=== PATIENT | female | born 1970 | race Caucasian/White ===

== ENCOUNTER 2016-12-05 16:49 | Emergency (ER) | payer OTHER ==
[2016-12-05] MEDS ORDERED: 0.9 % SODIUM CHLORIDE 1,000 ML IV ONE ×2 (16:59→17:00)
[2016-12-05] MEDS ORDERED: ONDANSETRON HCL/PF 4 MG/ 2ML VIAL IVP ONE ×2 (16:59→18:05)
[2016-12-05] MEDS ORDERED: ONDANSETRON HCL/PF 4 MG/ 2ML VIAL ONE (17:00)
[2016-12-05] MEDS ORDERED: HYDROmorphone HCL/PF 1 MG/ML DISP.SYRIN ONE (17:03)
[2016-12-05] MEDS ORDERED: HYDROmorphone HCL/PF 1 MG/ML DISP.SYRIN IVP ONE ×2 (17:04→19:09)
[2016-12-05 17:10] LABS: BASOPHILS % 0.8 (0.0-1.5); EOSINOPHILS % 2.8 % (0.0-6.8); MEAN CORPUSCULAR HEMOGLOBIN 28.1 pg (28.0-34.0); MEAN CORPUSCULAR VOLUME 90.5 fl (80.0-100.0); MONOCYTES % 4.7 % (0.0-11.0); NEUTROPHILS # 3.2 # k/uL (1.4-7.7)
[2016-12-05 17:26] LABS: eGFR (African) > 60; eGFR (Non-African) > 60
[2016-12-05] MEDS ORDERED: PANTOPRAZOLE SODIUM INJ. 40 MG VIAL ONE (17:26)
[2016-12-05] MEDS ORDERED: 0.9 % SODIUM CHLORIDE 100 ML IV ONE (17:26)
[2016-12-05] MEDS ORDERED: PANTOPRAZOLE SODIUM 40 MG in 0.9 % SODIUM CHLORIDE 50 ML IV SCH (18:00)
--- NOTE | 2016-12-05 18:00 | ED Physician Documentation ---
GI Bleed - HISTORIAN Historian: patient - HPI Stated Complaint: Nausea and Vomiting Chief Complaint: GI Bleed Additional Information: nausea hematemesis abd pain hx GIETLEMANS SYNDROME wears port. pt also has tachycardia and dyspnea Onset: days ago (1-2) Timing: gradual onset. denies: resolved on arrival to ED Severity: moderate Further Comments: yes (had episode last fall had tear in esophagus required surgery-also had 2 units blood) - Associated Symptoms Abdominal Pain: cramping, burning, moderate, epigastric Emesis Description: other (bright red blood) Description of Rectal Bleed: denies: bleeding w/o stools (normal brown bm this am) Other Related Symptoms: nausea, vomiting, other (sig abd pain) - ROS CONST: no problems. denies: recent illness, fever SKIN/LYMPH: denies: leg swelling, swollen glands CVS/RESP: none. denies: chest pain, shortness of breath GI/: denies: problems urinating MS: swollen glands NEURO/PSYCH: anxiety. 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) Surgeries/Procedures: cholecystectomy, , BLT, other (repair esophageal tear ivc filter pick line ) Allergies/Adverse Reactions: Allergies Allergy/AdvReac Type Severity Reaction Status Date / Time ketorolac tromethamine Allergy Verified 12/05/16 17:24 [From Toradol] NSAIDS (Non-Steroidal Allergy Verified 12/05/16 17:24 Anti-Inflamma Sulfa (Sulfonamide Allergy Verified 12/05/16 17:24 Antibiotics) morphine AdvReac Vomiting Verified 12/05/16 17:24 IV Dye Allergy Uncoded 12/05/16 17:24 Home Medications: Ambulatory Orders Medication Instructions Recorded Calcium Carb 500Mg [Tums] 500 mg PO BID 12/05/16 Ciprofloxacin HCl [Cipro] 500 mg PO BID 12/05/16 Cyanocobalamin [Vitamin B-12] 1,000 mcg PO DAILY 12/05/16 Fludrocortisone Acetate [Florinef] 0.1 mg PO QD 12/05/16 Folic Acid 1 mg PO BID 12/05/16 HYDROmorphone HCL [Dilaudid] 2 mg PO 12/05/16 Magnesium Oxide [Magnesium] 750 mg PO TID 12/05/16 Mesalamine [Mesalamine] 12/05/16 Pantoprazole Sodium [Protonix] 40 mg PO 717 12/05/16 Potassium Chloride [Klor-Con M20] 40 - 60 meq PO BID 12/05/16 Sertraline HCl [Zoloft] 100 mg PO DAILY 12/05/16 Spironolactone [Aldactone] 10 mg PO BID 12/05/16 - SOCIAL HX Smoking History: non-smoker Alcohol Use: none Drug Use: none - FAMILY HX Family History: none (NO OTHER gitemans syndrome in family) - VITAL SIGNS Vital Signs: Vital Signs Temp Pulse Resp BP Pulse Ox 130 H 20 104/61 98 12/05/16 16:50 12/05/16 16:50 12/05/16 16:50 12/05/16 16:50 - REVIEWED ASSESSMENTS Vitals Reviewed: Yes ED Results Lab/Radiology - Lab Results Lab Results: Lab Results 12/05/16 12/05/16 12/05/16 17:03 17:03 17:03 WBC 5.10 K/ul K/ul (4.00-12.00) RBC 3.42 M/ul L M/ul (3.90-5.20) Hgb 9.6 g/dL L g/dL (12.0-16.0) Hct 30.9 % L % (34.5-46.5) MCV 90.5 fl fl (80.0-100.0) MCH 28.1 pg pg (28.0-34.0) MCHC 31.1 g/dL g/dL (30.0-36.0) RDW 14.9 % H % (11.3-14.3) Plt Count 407 K/mm3 H K/mm3 (130-400) Neut % (Auto) 63.2 % % (39.0-79.0) Lymph % (Auto) 26.8 % % (16.0-50.0) Hernando % (Auto) 4.7 % % (0.0-11.0) Eos % (Auto) 2.8 % % (0.0-6.8) Baso % (Auto) 0.8 (0.0-1.5) Neut # (Auto) 3.2 # k/uL # k/uL (1.4-7.7) Lymph # (Auto) 1.4 # k/uL # k/uL (0.6-4.0) Hernando # (Auto) 0.2 # k/uL # k/uL (0.0-0.9) Eos # (Auto) 0.1 # k/uL # k/uL (0.0-0.6) Baso # (Auto) 0.0 # k/uL # k/uL (0.0-0.5) Reactive Lymphs % 1.7 % % (0.0-5.0) Reactive Lymphs # 0.1 # k/uL # k/uL (0.0-0.8) Sodium 142 mmol/L mmol/L (136-145) Potassium 3.1 mmol/L L mmol/L (3.5-5.0) Chloride 102 mmol/L mmol/L (98-110) Carbon Dioxide 33 mmol/L H mmol/L (20-32) BUN 10 mg/dL mg/dL (10-26) Creatinine 0.8 mg/dL mg/dL (0.4-1.5) Est GFR ( Amer) > 60 (60 - ) Est GFR (Non-Af Amer) > 60 (60 - ) Glucose 143 mg/dL H mg/dL (70-99) Calcium 10.1 mg/dL mg/dL (8.5-10.5) Total Bilirubin 0.3 mg/dL mg/dL (0.2-1.2) AST 21 U/L U/L (0-41) ALT 11 U/L U/L (0-45) Alkaline Phosphatase 76 U/L U/L (46-116) Total Protein 7.4 g/dL g/dL (6.0-8.5) Albumin 4.8 g/dL g/dL (3.0-5.5) Amylase 81 U/L U/L (20-104) - Orders Orders: ED Orders Category Date Time Status Place IV Lock 1T Care 12/05/16 16:59 Completed ABD SERIES PA CHEST [RAD] Stat Exams 12/05/16 Taken CBC/PLATELET/DIFF Routine Lab 12/05/16 17:03 Completed CMP Routine Lab 12/05/16 17:03 Completed URINALYSIS Routine Lab 12/05/16 Ordered mare [AMYLASE] Routine Lab 12/05/16 17:03 Completed 0.9 % Sodium Chloride [Normal Saline] 1,000 ml Med 12/05/16 17:00 Discontinued IV .STK-MED 0.9 % Sodium Chloride [Normal Saline] 1,000 ml Med 12/05/16 16:59 Discontinued IV Q1H 0.9 % Sodium Chloride [Sodium Chloride] 100 ml Med 12/05/16 17:26 Discontinued IV .STK-MED HYDROmorphone HCL/PF [Dilaudid] Med 12/05/16 17:03 Discontinued 1 mg .ROUTE .STK-MED ONE HYDROmorphone HCL/PF [Dilaudid] Med 12/05/16 17:04 Discontinued 1 mg IVP NOW ONE Ondansetron HCl/Pf [Zofran 4 mg/2 ml] Med 12/05/16 17:00 Discontinued 4 mg .ROUTE .STK-MED ONE Ondansetron HCl/Pf [Zofran 4 mg/2 ml] Med 12/05/16 16:59 Discontinued 4 mg IVP NOW ONE Pantoprazole Sodium [Protonix] Med 12/05/16 17:26 Discontinued 40 mg .ROUTE .STK-MED ONE Pantoprazole Sodium [Protonix] 40 mg Med 12/05/16 18:00 Ordered 0.9 % Sodium Chloride [Sodium Chloride] 50 ml IV DAILY EKG WITH COMPARISON Stat Ther 12/05/16 Ordered Abdominal Pain Physical Exam - Physical Exam General Appearance: moderate distress, anxious EENT: eye inspection normal NECK: normal inspection, thyroid normal, supple RESPIRATORY: no resp distress, breath sounds normal CVS: heart sounds normal, tachycardia ABDOMEN: tenderness, guarding (maggie epigastric area) BACK: normal inspection, no CVA tenderness SKIN: warm/dry, normal color, pallor. No: cyanosis, diaphoresis EXTREMITIES: non-tender, normal range of motion, no evidence of injury NEURO: oriented X3, motor nml, sensation nml Vital Signs: Vital Signs Temp Pulse Resp BP Pulse Ox 130 H 20 104/61 98 12/05/16 16:50 12/05/16 16:50 12/05/16 16:50 12/05/16 16:50 Discharge Clincal Impression: hematemesis, gitemans syndrome w/lo k, prev cva and PE Referrals: Primary Doctor,No [Primary Care Provider] - 2 Days Home Medications: Ambulatory Orders Calcium Carb 500Mg [Tums] 500 mg PO BID 12/05/16 Ciprofloxacin HCl [Cipro] 500 mg PO BID 12/05/16 Cyanocobalamin [Vitamin B-12] 1,000 mcg PO DAILY 12/05/16 Fludrocortisone Acetate [Florinef] 0.1 mg PO QD 12/05/16 Folic Acid 1 mg PO BID 12/05/16 HYDROmorphone HCL [Dilaudid] 2 mg PO 12/05/16 Magnesium Oxide [Magnesium] 750 mg PO TID 12/05/16 Mesalamine [Mesalamine] 12/05/16 Pantoprazole Sodium [Protonix] 40 mg PO 717 12/05/16 Potassium Chloride [Klor-Con M20] 40 - 60 meq PO BID 12/05/16 Sertraline HCl [Zoloft] 100 mg PO DAILY 12/05/16 Spironolactone [Aldactone] 10 mg PO BID 12/05/16 Comments: [facility] PT REQUEST DR CHISHOLM Condition: Fair Disposition: 02 XFER SHT-TRM HOSP Decision to Admit: [id number] Decision Time: 19:41
--- NOTE | 2016-12-05 18:01 | Diagnostic Imaging Report ---
[facility] [address] [facility].[address] [address] Report Submission Date: Dec 05, 2016 5:58:20 PM CDT Patient Study Name: SANDRA KABA Date: Dec 05, 2016 5:27:20 PM CDT Modality Type: CR Gender: F Description: CHEST,ABDOMEN : 74 Institution: [facility] Physician: FERNANDO MORA - ER Examination: Chest/Abdomen History: Abdominal discomfort Findings: 4 views obtained of the chest and abdomen. Single view of the chest demonstrates a normal cardiac silhouette. No focal infiltrate or effusion. Parenchymal scarring right upper lung. Thoracic curvature to the left. Right- sided chandrakant cath. No abnormal dilation of the large or small bowel. Air and stool throughout the large bowel. No suspicious calcification projecting over the renal fossa or the lower pelvic region. surgical clips right upper quadrant. Inferior vena cava filter. Pelvic phleboliths. Osseous structures are appropriate for age. Impression: No acute pulmonary process. Parenchymal scarring right upper lung. Correlate with older studies. No ileus or obstruction. No suspicious calcifications by plain film sensitivity. Electronically signed on Dec 05, 2016 5:58:20 PM CDT by: Jaime FORTUNE
[2016-12-05] MEDS ORDERED: PROMETHAZINE HCL 12.5 MG in 0.9 % SODIUM CHLORIDE 50 ML IV ONE (19:10)
[2016-12-05] MEDS ORDERED: HEPARIN SODIUM 500 UNIT/5 ML DISP.SYRIN IV ONE (20:09)
[2016-12-05] MEDS ORDERED: HEPARIN SODIUM,PORCINE 30 UNITS INJ IV ONE (20:10)
[2016-12-05 22:30] VITALS: BP 126/70
[2016-12-06 05:29] LABS: APPEARANCE,URINE CLEAR (CLEAR); COLOR,URINE YELLOW (YELLOW); OCCULT BLOOD,URINE NEGATIVE (NEGATIVE); PH URINE 5.5 (5.0 - 8.0); UROBILINOGEN URINE 0.2 Eu (0.2-1.0)
[2016-12-08 05:17] LABS: AMPHETAMINE NEGATIVE ng/mL (<1000); BARBITURATES NEGATIVE ng/mL (<300); CANNABINOIDS NEGATIVE ng/mL (< 50); COCAINE NEGATIVE ng/mL (<150); METHAMPHETAMINE NEGATIVE ng/mL (<1000); METHYLENEDIOXYMETHAMPHETAMINE NEGATIVE ng/mL (<500); OPIATES NON NEGATIVE ng/mL (<300)
== END 2016-12-05 20:30 | disposition short-term general hospital (02) ==
LOC: ED 16:49
DX: K92.0 Hematemesis (principal); E26.81 Bartter's syndrome; Z53.21 Procedure and treatment not carried out due to patient leaving prior to being seen by health care provider
CPT/HCPCS: 74022; 80053; 80377; 81002; 82150; 85025; 93005; J1170; J1642; J2405; J2550; J7030; 96361; 96365; 96375; 99284; G0481

== ENCOUNTER 2019-01-15 14:58 | Emergency (ER) | payer OTHER ==
--- NOTE | 2019-01-15 15:14 | ED Physician Documentation ---
General Adult - HISTORIAN Historian: patient - HPI Stated Complaint: vomiting blood Chief Complaint: General Adult Additional Information: Patient presents to ED with a 2 hour history of vomiting blood. Patient has a history of peptic ulcers and is currently on carafate and pepcid. She reports surgical intervention for her peptic ulcer. Last night she began to have epigastric pain and then this afternoon began to vomit bright red blood. She reports throwing up about 2 cups of blood prior to arrival to ED. After arrival to ED patient has vomited another cup of bright red blood. Patient also reports twisting her left ankle this morning. Onset: hours (2) Timing: still present Severity: severe - ROS CONST: denies: fever EYES/ENT: denies: problems with vision CVS/RESP: denies: chest pain, shortness of breath GI/: abdominal pain, vomiting, nausea MS/SKIN/LYMPH: none NEURO/PSYCH: denies: headache - PAST HX Past History: none Other History: peptic ulcer Surgeries/Procedures: other (peptic ulcer) Allergies/Adverse Reactions: Allergies Allergy/AdvReac Type Severity Reaction Status Date / Time ketorolac tromethamine Allergy Verified 01/15/19 15:07 [From Toradol] NSAIDS (Non-Steroidal Allergy Verified 01/15/19 15:07 Anti-Inflamma Sulfa (Sulfonamide Allergy Verified 01/15/19 15:07 Antibiotics) morphine AdvReac Vomiting Verified 01/15/19 15:07 IV Dye Allergy Uncoded 01/15/19 15:07 Home Medications: Ambulatory Orders Medication Instructions Recorded Calcium Carb 500Mg [Tums] 500 mg PO BID 12/05/16 Ciprofloxacin HCl [Cipro] 500 mg PO BID 12/05/16 Cyanocobalamin [Vitamin B-12] 1,000 mcg PO DAILY 12/05/16 Fludrocortisone Acetate [Florinef] 0.1 mg PO QD 12/05/16 Folic Acid 1 mg PO BID 12/05/16 HYDROmorphone HCL [Dilaudid] 2 mg PO 12/05/16 Magnesium Oxide [Magnesium] 750 mg PO TID 12/05/16 Mesalamine 12/05/16 Pantoprazole Sodium [Protonix] 40 mg PO 717 12/05/16 Potassium Chloride [Klor-Con M20] 40 - 60 meq PO BID 12/05/16 Sertraline HCl [Zoloft] 100 mg PO DAILY 12/05/16 Spironolactone [Aldactone] 10 mg PO BID 12/05/16 - SOCIAL HX Smoking History: non-smoker Alcohol Use: none Drug Use: none - FAMILY HX Family History: No - VITAL SIGNS Vital Signs: Vital Signs Temp Pulse Resp BP Pulse Ox 126/70 12/05/16 22:27 - REVIEWED ASSESSMENTS Nursing Assessment Reviewed: Yes Vitals Reviewed: Yes Progress - Progress Progress: 1703 Discussed with [facility] for transfer. Dr. Hurd, ICU. Awaiting call back. [address] Hurd for transfer, he agrees to accept. ED Results Lab/Radiology - Radiology Radiology Impressions: Report Submission Date: Jan 15, 2019 4:51:09 PM CDT Patient Study Name: SANDRA KABA Date: Jan 15, 2019 4:00:40 PM CDT Modality Type: DX Gender: F Description: ABD SERIES PA CHEST : 74 Institution: [facility] Physician: BIANCA CASTRO Exam: Abdominal obstruction series. History: Vomiting blood. No previous studies are available for comparison. Surgical clips in the left upper quadrant and right upper quadrant are noted. Scattered loops of bowel gas in both large and small intestine is noted with a mild amount of retained fecal material seen in the colon. No organomegaly is seen. No free air is identified. A Port-A-Cath is in position of the left hemithorax with tip in the anticipated superior vena cava. Lung garcia are well aerated without laureen consolidation or effusion. Heart and mediastinal contour are normal. An S shaped scoliosis to the thoracic spine is noted. Impression: Nonspecific bowel gas pattern. No free air. No laureen consolidation or effusion. Electronically signed on Jan 15, 2019 4:51:09 PM CDT by: Edvin Robison Report Submission Date: Jan 15, 2019 4:50:34 PM CDT Patient Study Name: SANDRA KABA Date: Jan 15, 2019 4:00:40 PM CDT Modality Type: DX Gender: F Description: ANKLE 3 VIEWS OR MORE : 74 Institution: [facility] Physician: BIANCA CASTRO Left ankle 3 views. Clinical history: Trauma. There is soft tissue swelling of the medial and lateral aspect of the left ankle. There is a suspicious of nondisplaced cortical fracture of the medial malleolus. No joint effusion. Lateral malleolus is normal Impression: Suspicious of nondisplaced incomplete fracture of the base of the medial malleolus . Clinical correlation with possible followup examination may be needed . Electronically signed on Jan 15, 2019 4:50:34 PM CDT by: Robert Ghosh - Orders Orders: ED Orders Category Date Time Status Place IV Lock 1T Care 01/15/19 15:12 Ordered CBC/PLATELET/DIFF Routine Lab 01/15/19 Ordered CMP Routine Lab 01/15/19 Ordered LIPASE Stat Lab 01/15/19 Ordered NORMAL SALINE @ 1000 MLS/HR ( 1000ml BOLUS) Med 01/15/19 15:13 Ordered 0.9 % Sodium Chloride [Normal Saline] 1,000 ml IV Q1H General Adult Physical Exam - PHYSICAL EXAM GENERAL APPEARANCE: mild distress EENT: eye inspection normal, TONY NECK: supple RESPIRATORY: no resp distress, chest non-tender, breath sounds normal CVS: no murmur, tachycardia ABDOMEN: soft, tenderness (epigastric ) BACK: normal inspection SKIN: warm/dry, pallor EXTREMITIES: other (left lateral ankle swelling with ecchymosis ) NEURO: oriented X3, CN's nml as tested, motor nml, sensation nml, mood/affect nml Discharge Clincal Impression: Upper GI bleeding Fracture of medial malleolus, left, closed Qualifiers: Encounter type: initial encounter Fracture alignment: nondisplaced Qualified Code(s): S82.55XA - Nondisplaced fracture of medial malleolus of left tibia, initial encounter for closed fracture Referrals: Primary Doctor,Radha [Primary Care Provider] - 2 Days Comments: Transferred to [facility] under the care of Dr. Hurd for GI bleed and ankle fracture. Condition: Stable Disposition: 02 XFER SHT-TRM HOSP Decision to Admit: NO Date of Decison to Admit: 01/15/19 Decision Time: 17:15
[2019-01-15] MEDS: 0.9 % SODIUM CHLORIDE 1,000 ML IV ONE (15:24)
[2019-01-15 15:26] LABS: BASOPHILS % 0.4 % (0.0-1.5); NEUTROPHILS # 3.5 # k/uL (1.4-7.7)
[2019-01-15 15:37] LABS: eGFR (Non-African) > 60
[2019-01-15] MEDS: ONDANSETRON HCL/PF 4 MG/ 2ML VIAL IVP ONE ×2 (15:37→17:45)
[2019-01-15] MEDS: fentaNYL CITRATE/PF 100 MCG/2 ML INJ. IV ONE (15:37)
[2019-01-15] MEDS: PANTOPRAZOLE SODIUM INJ. 40 MG VIAL ONE (15:38)
[2019-01-15] MEDS: SODIUM CHLORIDE 0.9% IVP SCH (16:18)
[2019-01-15] MEDS: PANTOPRAZOLE SODIUM IVP SCH (16:18)
[2019-01-15] MEDS: HYDROmorphone HCL/PF 1 MG/ML VIAL IVP ONE ×2 (16:52→17:45)
--- NOTE | 2019-01-15 17:01 | Diagnostic Imaging Report ---
BIANCA CASTRO [facility] [id number] [facility] [address] [place], [place]. [address] Report Submission Date: Jan 15, 2019 4:51:09 PM CDT Patient Study Name: SANDRA KABA Date: Jan 15, 2019 4:00:40 PM CDT Modality Type: DX Gender: F Description: ABD SERIES PA CHEST : 74 Institution: [facility] Physician: BIANCA CASTRO Exam: Abdominal obstruction series. History: Vomiting blood. No previous studies are available for comparison. Surgical clips in the left upper quadrant and right upper quadrant are noted. Scattered loops of bowel gas in both large and small intestine is noted with a mild amount of retained fecal material seen in the colon. No organomegaly is seen. No free air is identified. A Port-A-Cath is in position of the left hemithorax with tip in the anticipated superior vena cava. Lung garcia are well aerated without laureen consolidation or effusion. Heart and mediastinal contour are normal. An S shaped scoliosis to the thoracic spine is noted. Impression: Nonspecific bowel gas pattern. No free air. No laureen consolidation or effusion. Electronically signed on Jan 15, 2019 4:51:09 PM CDT by: Edvin FORTUNE
--- NOTE | 2019-01-15 17:02 | Diagnostic Imaging Report ---
BIANCA CASTRO [facility] [address] [facility].[address] [address] Report Submission Date: Jan 15, 2019 4:50:34 PM CDT Patient Study Name: SANDRA KABA Date: Jan 15, 2019 4:00:40 PM CDT Modality Type: DX Gender: F Description: ANKLE 3 VIEWS OR MORE : 74 Institution: [facility] Physician: BIANCA CASTRO Left ankle 3 views. Clinical history: Trauma. There is soft tissue swelling of the medial and lateral aspect of the left ankle. There is a suspicious of nondisplaced cortical fracture of the medial malleolus. No joint effusion. Lateral malleolus is normal Impression: Suspicious of nondisplaced incomplete fracture of the base of the medial malleolus . Clinical correlation with possible followup examination may be needed . Electronically signed on Jan 15, 2019 4:50:34 PM CDT by: Robert FORTUNE
[2019-01-15] MEDS: METOCLOPRAMIDE HCL 10 MG/2 ML VIAL IVP ONE (17:41)
[2019-01-15 18:04] VITALS: BP 114/71
== END 2019-01-15 17:50 | disposition short-term general hospital (02) ==
LOC: ED 14:58
DX: S82.55XA Nondisplaced fracture of medial malleolus of left tibia, initial encounter for closed fracture (principal); K92.2 Gastrointestinal hemorrhage, unspecified; X50.0XXA Overexertion from strenuous movement or load, initial encounter
CPT/HCPCS: 73610; 74022; 80053; 83690; 84703; 85025; 96361; 96374; 99284; J1170; J2405; J3010; J7030

== ENCOUNTER 2019-04-10 17:10 | Emergency (ER) | payer OTHER ==
--- NOTE | 2019-04-10 17:11 | ED Physician Documentation ---
General Adult - HISTORIAN Historian: patient - HPI Stated Complaint: Vomiting bright red blood x 2 hours Chief Complaint: GI Bleed Onset: hours (2) Timing: still present Severity: severe (01/26) Further Comments: yes (She states she has a history of GI bleed - she was here in Dec [facility]. She started to have mild abdominal pain last night and then vomiting bright red blood x 2 hours. 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 She has extreme pain in her LUQ.) - ROS CONST: no problems GI/: abdominal pain, vomiting, nausea MS/SKIN/LYMPH: none - PAST HX Past History: other (gastric ulcers ) Immunizations: UTD Allergies/Adverse Reactions: Allergies Allergy/AdvReac Type Severity Reaction Status Date / Time ketorolac tromethamine Allergy Verified 04/10/19 17:51 [From Toradol] metoclopramide [From Reglan] Allergy Verified 04/10/19 17:51 NSAIDS (Non-Steroidal Allergy Verified 04/10/19 17:51 Anti-Inflamma Sulfa (Sulfonamide Allergy Verified 04/10/19 17:51 Antibiotics) morphine AdvReac Vomiting Verified 04/10/19 17:51 IV Dye Allergy Uncoded 04/10/19 17:51 Home Medications: Ambulatory Orders Medication Instructions Recorded Calcium Carb 500Mg [Tums] 500 mg PO BID 12/05/16 CiproFLOXacin HCL [Cipro] 500 mg PO BID 12/05/16 Cyanocobalamin [Vitamin B-12] 1,000 mcg PO DAILY 12/05/16 Fludrocortisone Acetate [Florinef] 0.1 mg PO QD 12/05/16 Folic Acid 1 mg PO BID 12/05/16 Magnesium Oxide [Magnesium] 750 mg PO TID 12/05/16 Pantoprazole Sodium [Protonix] 40 mg PO 717 12/05/16 Potassium Chloride [Klor-Con M20] 40 - 60 meq PO BID 12/05/16 Sertraline HCl [Zoloft] 100 mg PO DAILY 12/05/16 Spironolactone [Aldactone] 10 mg PO BID 12/05/16 - SOCIAL HX Smoking History: non-smoker Alcohol Use: none Drug Use: none - FAMILY HX Family History: No - VITAL SIGNS Vital Signs: Vital Signs Temp Pulse Resp BP Pulse Ox 114/71 01/15/19 17:50 - REVIEWED ASSESSMENTS Nursing Assessment Reviewed: Yes Vitals Reviewed: Yes Progress - Progress Progress: 1714: discussed case with [facility] - she states will need lab due to a medical bed hold DG 1730: she is spitting up bright red blood and is having 10/10 pain in LUQ DG 1735: did discuss care with Dr Mujica at [facility] in ICU- due to current findings is not candidate for ICU status will do CT and monitor DG 1837: Discussed care with Lorrieanibal Mclaughlin [facility]. Accepting and orders received DG General Adult Physical Exam - PHYSICAL EXAM GENERAL APPEARANCE: mild distress EENT: eye inspection normal, pharynx normal, no signs of dehydration NECK: normal inspection RESPIRATORY: no resp distress, chest non-tender, breath sounds normal CVS: reg rate & rhythm, heart sounds normal ABDOMEN: soft, tenderness (diffuse more with palpation LUQ ) BACK: normal inspection, no CVA tenderness SKIN: warm/dry EXTREMITIES: non-tender, normal range of motion NEURO: oriented X3 Discharge Clincal Impression: Upper GI bleeding Referrals: Primary Doctor,No [Primary Care Provider] - 2 Days Comments: Transfer to [facility] due med hold at [facility] DG Condition: Critical Disposition: 02 XFER SHT-TRM HOSP Decision to Admit: NO Date of Decison to Admit: 04/10/19 Decision Time: 18:46
[2019-04-10] MEDS ORDERED: 0.9 % SODIUM CHLORIDE 1,000 ML IV ONE ×2 (17:23→18:15)
[2019-04-10 17:32] LABS: BASOPHILS % 0.6 % (0.0-1.5); NEUTROPHILS # 3.8 # k/uL (1.4-7.7)
[2019-04-10] MEDS ORDERED: ONDANSETRON HCL/PF 4 MG/ 2ML VIAL ONE (17:34)
[2019-04-10] MEDS ORDERED: ONDANSETRON HCL/PF 4 MG/ 2ML VIAL IVP ONE (17:38)
[2019-04-10 17:46] LABS: eGFR (Non-African) > 60
[2019-04-10] MEDS ORDERED: FAMOTIDINE 20 MG/2 ML VIAL IV ONE (17:55)
--- NOTE | 2019-04-10 18:24 | Diagnostic Imaging Report ---
PATIENT MR#: [id number] PATIENT PATIENT NAME: SANDRA KABA DATE OF : 1970 REFERRING PHYSICIAN: Risa Montemayor EXAM DATE: 04/10/2019 ACCESSION NUMBER: [id number] EXAM DESCRIPTION: CT ABD PELVIS W/O CO HISTORY: 49-year-old female with left upper quadrant abdominal pain, hematemesis. COMPARISON: Radiographs dated 01/15/2019 TECHNIQUE: Helical CT images of the abdomen and pelvis were performed without contrast. Sagittal and coronal reformatted images were obtained. FINDINGS: CT abdomen: The lung bases are clear. There are postoperative changes about the GE junction and gas tric fundus. There is mild dilatation of the distal esophagus. The gallbladder is surgically absent. There are multipl e bilateral hyperdense renal cortical nodules. The noncontrast liver, spleen, pancreas, and adrenal glands are u nremarkable. No abdominal aortic aneurysm. There are postoperative changes of umbilical herniorrhaphy with mesh. Th ere are postoperative changes of IVC filter. CT pelvis: No abnormal bowel dilatation, free air, free fluid, or suspicious adenopathy. There is s igmoid colon diverticulosis without evidence of acute diverticulitis. There is fecal retention in the colon. The appendix is normal in appearance. Probable exophytic fibroid extending to the right of the uterus measuring up to 4.1 c m axially (image 78, series 2). There is mild urinary bladder wall thickening despite distension. There is a chronic mild superior endplate compression fracture of T11. There is degenerative disc disease, most severe at L3-L4. The re is S-shaped thoracolumbar scoliosis. IMPRESSION: 1. Postoperative changes of the abdomen and pelvis as detailed above. 2. Mild dilatation of the distal esophagus may be chronic following the patient's surgery about the GE junction and stomach. 3. Bilateral hyperdense renal cortical nodules. Recommend follow-up outpatient renal ultrasound nydia luation for better characterization. 4. Sigmoid colon diverticulosis without evidence of acute diverticulitis. 5. Fecal retention in the colon suggestive of constipation. 6. Mild urinary bladder wall thickening despite distension suggestive of cystitis. 7. Mild superior endplate compression fracture of T11. 8. No evidence of bowel obstruction, acute appendicitis, or other acute process in the abdomen or pe lvis. Read by: Dr. Chinedu Cox Transcribed by: Transcribed Date: Electronically signed by: Dr. Chinedu Cox Date signed: 04/10/2019 6:23:44 PM
[2019-04-10] MEDS ORDERED: PANTOPRAZOLE SODIUM INJ. 40 MG VIAL ONE ×2 (18:48)
[2019-04-10] MEDS ORDERED: PANTOPRAZOLE SODIUM 80 MG in 0.9 % SODIUM CHLORIDE 50 ML IV SCH ×2 (18:49→19:00)
[2019-04-10] MEDS ORDERED: 0.9 % SODIUM CHLORIDE 50 ML IV ONE (18:50)
[2019-04-10 19:19] VITALS: BP 123/80
== END 2019-04-10 19:19 | disposition short-term general hospital (02) ==
LOC: ED 17:10
DX: K92.2 Gastrointestinal hemorrhage, unspecified (principal)
CPT/HCPCS: 74176; 80053; 84703; 85025; 85610; 96361; 96374; 99282; 99284; J2405; J7030